=== PATIENT | male | born 1965 | race African-American/Black ===

== ENCOUNTER 2018-03-07 09:35 | Inpatient (IN) ==
[2018-03-07] MEDS ORDERED: FUROSEMIDE 100 MG/10 ML VIAL IV STA (10:40)
[2018-03-07 10:49] LABS: Eosinophils % 1.3 % (0.00-10.9); Lymphocytes # 1.1 10*3/uL (1.4-4.0); Lymphocytes % 35.4 % (21.2-54.2); Mean Corpuscular Hemoglobin 28 PG (27-34); Mean Corpuscular Volume 83.3 FL (87-102); Mean Platelet Volume 11.8 FL (9.6-12.0); Monocytes # 0.4 10*3/uL (0.11-0.8); Monocytes % 11.5 % (1.7-12.7); Neutrophils # 1.6 10*3/uL (1.4-7.4); Neutrophils % 50.8 % (38.7-73.9); Platelet Count 182 T/CUMM (130-400); Red Blood Count 5.64 MC/CUMM (3.8-5.5); Red Cell Distribution Width 19.2 % (9.3-17.3); White Blood Count 3.1 T/CUMM (4-12)
[2018-03-07 11:28] LABS: Albumin 3.2 G/DL (3.4-5.0); Bilirubin,Total 1.4 MG/DL (0.2-1.0); Osmolality,Calculated 286.7 MOS/KG (273-304); Potassium 3.9 MMOL/L (3.5-5.1); Total Protein 6.9 G/DL (6.4-8.3)
[2018-03-07] MEDS ORDERED: MAGNESIUM SULF RIDER 4 GM in PREMIX 1 EACH IV PRN ×2 (12:50→13:43)
[2018-03-07] MEDS ORDERED: cefTRIAXone 2,000 MG in SODIUM CHLORIDE 0.9% 100 ML IV SCH (13:30)
[2018-03-07] MEDS: HEPARIN 5,000 UNIT/1 ML VIAL SUBCUT SCH ×2 (13:30→21:18)
[2018-03-07 13:31] LABS: Risk Ratio 4.13; VLDL CHOLESTEROL 20.2 MG/DL
[2018-03-07] MEDS ORDERED: GLUCAGON 1 MG VIAL IM PRN (13:43)
[2018-03-07] MEDS ORDERED: MAGNESIUM SULF RIDER 2 GM in PREMIX 1 EACH IV PRN (13:43)
[2018-03-07] MEDS ORDERED: DEXTROSE 50% 25 GM/50 ML VIAL IV PRN (13:43)
[2018-03-07] MEDS: ALBUTEROL/IPRATROPIUM 3 ML NEB RESP TX SCH ×3 (13:51→23:08)
[2018-03-07] MEDS ORDERED: hydrALAZINE 10 MG TABLET PO SCH (15:00)
[2018-03-07 16:19] LABS: Hepatitis A Ab IgM Quant 0.12 Index; Hepatitis A Ab IgM Result Negative (Negative); Hepatitis B Core IgM Quant 0.08 Index; Hepatitis B Core IgM Result Negative (Negative); Hepatitis B Surface Ag Quant 0.41 Index; Hepatitis B Surface Ag Result Negative (Negative); Hepatitis C Virus Ab Result Negative (Negative)
[2018-03-07] MEDS ORDERED: CARVEDILOL 6.25 MG TABLET PO SCH ×2 (16:48→21:00)
[2018-03-07] MEDS: INSULIN REGULAR 100 UNIT/ML SUBCUT SCH ×2 (16:50→21:19)
[2018-03-07] MEDS: FUROSEMIDE 40 MG/4 ML VIAL IV SCH ×2 (16:50→21:18)
[2018-03-07] MEDS: CARVEDILOL 12.5 MG TABLET PO SCH ×2 (16:53→22:44)
[2018-03-07] MEDS: MAGNESIUM SULF RIDER 2 GM in PREMIX 1 EACH IV PRN (19:01)
[2018-03-07] MEDS ORDERED: CARVEDILOL 3.125 MG TABLET PO SCH (21:00)
[2018-03-08] MEDS: ALBUTEROL/IPRATROPIUM 3 ML NEB RESP TX SCH ×6 (02:34→23:03)
[2018-03-08] MEDS ORDERED: LEVALBUTEROL 1.25 MG/3 ML NEB RESP TX PRN (04:00)
[2018-03-08] MEDS ORDERED: POLYETHYLENE GLYCOL POWDER 17 GM PACK PO PRN (04:01)
[2018-03-08 04:26] LABS: Basophils % 0.8 % (0.0-0.8); Eosinophils # 0.1 10*3/uL (0.0-0.87); Eosinophils % 3.1 % (0.00-10.9); Hematocrit 45.8 VOL% (42.0-52.0); Immature Granulocytes % 0.6 %; Immature Granulocytes Absolute 0.02 #; Lymphocytes # 1.3 10*3/uL (1.4-4.0); Lymphocytes % 35.5 % (21.2-54.2); Mean Corpuscular HGB Conc 32.8 GM/DL (32-36); Mean Corpuscular Hemoglobin 28 PG (27-34); Mean Corpuscular Volume 84.7 FL (87-102); Mean Platelet Volume 12.1 FL (9.6-12.0); Monocytes # 0.4 10*3/uL (0.11-0.8); Monocytes % 10.4 % (1.7-12.7); Neutrophils # 1.8 10*3/uL (1.4-7.4); Neutrophils % 49.6 % (38.7-73.9); Platelet Count 174 T/CUMM (130-400); Red Blood Count 5.41 MC/CUMM (3.8-5.5); White Blood Count 3.6 T/CUMM (4-12)
[2018-03-08 04:47] LABS: Albumin 2.8 G/DL (3.4-5.0); Bilirubin,Total 1.4 MG/DL (0.2-1.0); Calcium 8.9 MG/DL (8.5-10.1); Osmolality,Calculated 282.7 MOS/KG (273-304); Total Protein 6.2 G/DL (6.4-8.3)
[2018-03-08] MEDS ORDERED: DOBUTamine 500 MG/250 ML PREMIX IV SCH (05:30)
[2018-03-08] MEDS: CARVEDILOL 12.5 MG TABLET PO SCH (06:04)
[2018-03-08] MEDS: HEPARIN 5,000 UNIT/1 ML VIAL SUBCUT SCH ×2 (06:09→13:49)
[2018-03-08] MEDS: INSULIN REGULAR 100 UNIT/ML SUBCUT SCH ×4 (07:56→20:10)
[2018-03-08] MEDS: FUROSEMIDE 40 MG/4 ML VIAL IV SCH ×2 (08:11→15:37)
[2018-03-08] MEDS: ASPIRIN CHEW 81 MG TABLET PO SCH (08:11)
[2018-03-08] MEDS: DIGOXIN 0.5 MG/2 ML AMP IV SCH ×2 (11:21→15:36)
[2018-03-08] MEDS: APIXABAN 5 MG TABLET PO SCH (20:11)
[2018-03-09] MEDS: ALBUTEROL/IPRATROPIUM 3 ML NEB RESP TX SCH ×6 (03:30→23:27)
[2018-03-09 04:15] LABS: Basophils % 0.4 % (0.0-0.8); Eosinophils # 0.1 10*3/uL (0.0-0.87); Eosinophils % 2.2 % (0.00-10.9); Hematocrit 46.6 VOL% (42.0-52.0); Hemoglobin 15.4 GM/DL (14.0-18.0); Immature Granulocytes % 0.2 %; Immature Granulocytes Absolute 0.01 #; Lymphocytes % 23.1 % (21.2-54.2); Mean Corpuscular Hemoglobin 28 PG (27-34); Mean Corpuscular Volume 83.4 FL (87-102); Mean Platelet Volume 12.3 FL (9.6-12.0); Monocytes # 0.5 10*3/uL (0.11-0.8); Monocytes % 10.8 % (1.7-12.7); Neutrophils # 2.8 10*3/uL (1.4-7.4); Neutrophils % 63.3 % (38.7-73.9); Platelet Count 164 T/CUMM (130-400); Red Blood Count 5.59 MC/CUMM (3.8-5.5); Red Cell Distribution Width 19.2 % (9.3-17.3); White Blood Count 4.5 T/CUMM (4-12)
[2018-03-09 04:58] LABS: Albumin 2.7 G/DL (3.4-5.0); Bilirubin,Total 1.3 MG/DL (0.2-1.0); Calcium 8.6 MG/DL (8.5-10.1); Osmolality,Calculated 287.1 MOS/KG (273-304); Potassium 3.8 MMOL/L (3.5-5.1)
[2018-03-09] MEDS ORDERED: MIDAZOLAM 2 MG/2 ML VIAL ONE (06:37)
[2018-03-09] MEDS ORDERED: PROPOFOL 200 MG/20 ML VIAL IV ONE ×2 (06:37→10:13)
[2018-03-09] MEDS ORDERED: ETOMIDATE 40 MG/20 ML VIAL IV ONE ×2 (06:37→10:14)
[2018-03-09] MEDS: INSULIN REGULAR 100 UNIT/ML SUBCUT SCH ×4 (07:43→20:13)
[2018-03-09] MEDS: MAGNESIUM SULF RIDER 2 GM in PREMIX 1 EACH IV PRN (07:55)
[2018-03-09] MEDS: POTASSIUM CHLORIDE RIDER 10 MEQ in PREMIX 1 EACH IV PRN ×2 (07:56→11:05)
[2018-03-09] MEDS ORDERED: AMIODARONE 150 MG/3 ML VIAL ONE ×2 (10:02)
[2018-03-09] MEDS ORDERED: AMIODARONE INJ 450 MG in DEXTROSE 5% 241 ML IV SCH (10:30)
[2018-03-09] MEDS: FUROSEMIDE 40 MG/4 ML VIAL IV SCH ×2 (11:03→17:34)
[2018-03-09] MEDS: APIXABAN 5 MG TABLET PO SCH ×2 (11:04→20:13)
[2018-03-09] MEDS: ASPIRIN CHEW 81 MG TABLET PO SCH (11:04)
[2018-03-09] MEDS: DIGOXIN 0.125 MG TABLET PO SCH (13:43)
[2018-03-09] MEDS: hydrALAZINE 10 MG TABLET PO SCH ×2 (17:34→20:13)
[2018-03-09] MEDS: AMIODARONE INJ 450 MG in DEXTROSE 5% 241 ML IV SCH (17:45)
[2018-03-09] MEDS ORDERED: AMIODARONE 450 MG/9 ML VIAL IV ONE (17:51)
[2018-03-10] MEDS: ALBUTEROL/IPRATROPIUM 3 ML NEB RESP TX SCH ×7 (03:38→23:09)
[2018-03-10 04:18] LABS: Basophils % 0.3 % (0.0-0.8); Eosinophils # 0.2 10*3/uL (0.0-0.87); Eosinophils % 4.1 % (0.00-10.9); Hematocrit 46.6 VOL% (42.0-52.0); Hemoglobin 15.4 GM/DL (14.0-18.0); Lymphocytes # 1.1 10*3/uL (1.4-4.0); Lymphocytes % 28.1 % (21.2-54.2); Mean Corpuscular Hemoglobin 28 PG (27-34); Mean Corpuscular Volume 83.7 FL (87-102); Mean Platelet Volume 10.7 FL (9.6-12.0); Monocytes # 0.5 10*3/uL (0.11-0.8); Monocytes % 12.9 % (1.7-12.7); Neutrophils # 2.1 10*3/uL (1.4-7.4); Neutrophils % 54.6 % (38.7-73.9); Platelet Count 135 T/CUMM (130-400); Red Blood Count 5.57 MC/CUMM (3.8-5.5); Red Cell Distribution Width 19.3 % (9.3-17.3); White Blood Count 3.9 T/CUMM (4-12)
[2018-03-10 04:51] LABS: Bilirubin,Total 1.4 MG/DL (0.2-1.0); Osmolality,Calculated 278.8 MOS/KG (273-304); Total Protein 6.4 G/DL (6.4-8.3)
[2018-03-10] MEDS ORDERED: HEPARIN/NACL 0.9% 2 UNITS/ML 500 ML IV ONE (06:55)
[2018-03-10] MEDS ORDERED: ceFAZolin 1,000 MG VIAL ONE (06:55)
[2018-03-10] MEDS ORDERED: ceFAZolin 1,000 MG VIAL IRRIG ONE (07:00)
[2018-03-10] MEDS ORDERED: LIDOCAINE 1% 20 ML VIAL ONE (07:02)
[2018-03-10] MEDS ORDERED: TISSUE ADHESIVE 1 EACH APPLICATOR TOP ONE (07:02)
[2018-03-10] MEDS ORDERED: PROPOFOL 200 MG/20 ML VIAL IV ONE (09:00)
[2018-03-10] MEDS ORDERED: SODIUM CHLORIDE 0.9% 100 ML IV ONE (09:01)
[2018-03-10] MEDS ORDERED: ETOMIDATE 40 MG/20 ML VIAL IV ONE (09:01)
[2018-03-10] MEDS ORDERED: KETAMINE 500 MG/10 ML VIAL ONE (09:01)
[2018-03-10] MEDS: INSULIN REGULAR 100 UNIT/ML SUBCUT SCH ×4 (09:43→21:44)
[2018-03-10] MEDS: hydrALAZINE 10 MG TABLET PO SCH ×3 (10:03→20:57)
[2018-03-10] MEDS: ASPIRIN CHEW 81 MG TABLET PO SCH (10:03)
[2018-03-10] MEDS: CARVEDILOL 3.125 MG TABLET PO SCH ×2 (10:03→20:57)
[2018-03-10] MEDS: FUROSEMIDE 40 MG/4 ML VIAL IV SCH ×2 (10:30→17:29)
[2018-03-10] MEDS: ISOSORBIDE MONONITRATE 30 MG TABLET PO SCH (10:47)
[2018-03-10] MEDS: AMIODARONE INJ 450 MG in DEXTROSE 5% 241 ML IV SCH (10:51)
[2018-03-10] MEDS: oxyCODONE/ACETAMINOPHEN 5-325 MG TABLET PO PRN ×2 (14:30→20:57)
[2018-03-10] MEDS: DIGOXIN 0.125 MG TABLET PO SCH (14:50)
[2018-03-11] MEDS: oxyCODONE/ACETAMINOPHEN 5-325 MG TABLET PO PRN ×3 (02:34→20:39)
[2018-03-11] MEDS: ALBUTEROL/IPRATROPIUM 3 ML NEB RESP TX SCH ×6 (03:50→23:19)
[2018-03-11] MEDS: AMIODARONE INJ 450 MG in DEXTROSE 5% 241 ML IV SCH (04:00)
[2018-03-11 04:03] LABS: Basophils % 0.2 % (0.0-0.8); Eosinophils # 0.1 10*3/uL (0.0-0.87); Eosinophils % 2.5 % (0.00-10.9); Hematocrit 42.1 VOL% (42.0-52.0); Hemoglobin 13.9 GM/DL (14.0-18.0); Immature Granulocytes % 0.4 %; Immature Granulocytes Absolute 0.02 #; Lymphocytes # 0.9 10*3/uL (1.4-4.0); Lymphocytes % 19.4 % (21.2-54.2); Mean Corpuscular Hemoglobin 28 PG (27-34); Mean Corpuscular Volume 85.6 FL (87-102); Mean Platelet Volume 11.2 FL (9.6-12.0); Monocytes # 0.6 10*3/uL (0.11-0.8); Monocytes % 11.8 % (1.7-12.7); Neutrophils # 3.2 10*3/uL (1.4-7.4); Neutrophils % 65.7 % (38.7-73.9); Platelet Count 121 T/CUMM (130-400); Red Blood Count 4.92 MC/CUMM (3.8-5.5); Red Cell Distribution Width 18.6 % (9.3-17.3); White Blood Count 4.8 T/CUMM (4-12)
[2018-03-11 04:21] LABS: Calcium 8.6 MG/DL (8.5-10.1); Osmolality,Calculated 278.8 MOS/KG (273-304); Potassium 3.9 MMOL/L (3.5-5.1)
[2018-03-11] MEDS: MAGNESIUM SULF RIDER 2 GM in PREMIX 1 EACH IV PRN (06:21)
[2018-03-11] MEDS: INSULIN REGULAR 100 UNIT/ML SUBCUT SCH ×4 (08:45→20:39)
[2018-03-11] MEDS: ISOSORBIDE MONONITRATE 30 MG TABLET PO SCH ×2 (08:45→10:03)
[2018-03-11] MEDS: CARVEDILOL 3.125 MG TABLET PO SCH ×2 (08:45→20:39)
[2018-03-11] MEDS: hydrALAZINE 10 MG TABLET PO SCH ×3 (08:45→20:39)
[2018-03-11] MEDS: FUROSEMIDE 40 MG/4 ML VIAL IV SCH ×2 (08:45→17:13)
[2018-03-11] MEDS: ASPIRIN CHEW 81 MG TABLET PO SCH (08:46)
[2018-03-11] MEDS: AMIODARONE 200 MG TABLET PO SCH (10:04)
[2018-03-11] MEDS: cephALEXin 500 MG CAPSULE PO SCH ×2 (12:14→21:38)
[2018-03-11] MEDS: DIGOXIN 0.125 MG TABLET PO SCH (15:04)
[2018-03-11] MEDS ORDERED: MORPHINE 4 MG/1 ML VIAL IV PRN (19:35)
[2018-03-12] MEDS: ALBUTEROL/IPRATROPIUM 3 ML NEB RESP TX SCH ×3 (03:11→10:44)
[2018-03-12 03:49] LABS: Calcium 8.8 MG/DL (8.5-10.1); Osmolality,Calculated 277.7 MOS/KG (273-304)
[2018-03-12] MEDS: MAGNESIUM SULF RIDER 2 GM in PREMIX 1 EACH IV PRN (05:57)
[2018-03-12] MEDS ORDERED: FUROSEMIDE 80 MG TABLET PO SCH (08:00)
[2018-03-12] MEDS: CARVEDILOL 3.125 MG TABLET PO SCH (08:43)
[2018-03-12] MEDS: cephALEXin 500 MG CAPSULE PO SCH (08:43)
[2018-03-12] MEDS: ASPIRIN CHEW 81 MG TABLET PO SCH (08:44)
[2018-03-12] MEDS: hydrALAZINE 10 MG TABLET PO SCH (08:44)
[2018-03-12] MEDS: ISOSORBIDE MONONITRATE 30 MG TABLET PO SCH (08:44)
[2018-03-12] MEDS: AMIODARONE 200 MG TABLET PO SCH (08:44)
[2018-03-12] MEDS: INSULIN REGULAR 100 UNIT/ML SUBCUT SCH (11:09)
[2018-03-12 11:52] VITALS: BP 111/73
== END 2018-03-12 12:20 | disposition home or self-care (01) | DRG 161 ==
LOC: N.ED 09:35 → N.EDINP 12:37 → SUATTDRO 12:37 → N.TELEN 13:08 → N.CC 03-08 05:37 → N.TELES 03-11 15:47
PROVIDERS: ADMIT Hospitalist; ATTEND Hospitalist
PROC: CLDCICD (2018-03-10 07:15)

== ENCOUNTER 2020-11-21 12:59 | Inpatient (IN) ==
[2020-11-21] MEDS ORDERED: SODIUM CHLORIDE 0.9% 1,000 ML IV STA (14:12)
[2020-11-21 14:39] LABS: Bilirubin,Total 0.6 MG/DL (0.2-1.0); Osmolality,Calculated 290.9 MOS/KG (273-304); Potassium 5.2 MMOL/L (3.5-5.1); Total Protein 7.9 G/DL (6.4-8.2)
[2020-11-21 14:42] LABS: Bilirubin,Urine Negative (Negative); Blood, Urine Small mg/dL (Negative); Glucose,Urine (UA) >=500 mg/dL (Negative); Ketones,Urine Negative (Negative); Nitrite,Urine Negative (Negative); Protein,Urine Negative; RBC,Urine 6 /HPF (0-4); Squamous Epithelial Cell,Urine Occasional /HPF (0-10); Urine Appearance CLOUDY (Clear); Urine Color Yellow (Yellow); Urine Specific Gravity 1.018 (1.001-1.035); Urine Urobilinogen < 2.0 EU/DL (0.2-1.0)
[2020-11-21] MEDS ORDERED: cefTRIAXone 1,000 MG in SODIUM CHLORIDE 0.9% 100 ML IV STA (14:48)
[2020-11-21] MEDS ORDERED: INSULIN REGULAR 100 UNIT/ML IV ONE (15:00)
[2020-11-21] MEDS ORDERED: LACTATED RINGERS 2,000 ML IV ONE (15:11)
[2020-11-21 15:15] LABS: Basophils % 0.3 % (0.0-0.8); Eosinophils % 0.3 % (0.00-10.9); Hematocrit 34.6 VOL% (42.0-52.0); Hemoglobin 12.3 GM/DL (14.0-18.0); Immature Granulocytes % 0.4 %; Immature Granulocytes Absolute 0.03 #; Lymphocytes # 0.7 10*3/uL (1.4-4.0); Lymphocytes % 9.9 % (21.2-54.2); Mean Corpuscular HGB Conc 35.5 GM/DL (32-36); Mean Corpuscular Volume 81.4 FL (87-102); Mean Platelet Volume 12.4 FL (9.6-12.0); Monocytes % 10.7 % (1.7-12.7); Neutrophils % 78.4 % (38.7-73.9); Platelet Count 181 T/CUMM (130-400); Red Blood Count 4.25 MC/CUMM (3.8-5.5); Red Cell Distribution Width 13.5 % (9.3-17.3); White Blood Count 6.9 T/CUMM (4-12)
[2020-11-21] MEDS ORDERED: ALBUTEROL 2.5 MG/3 ML NEB RESP TX PRN (16:00)
[2020-11-21] MEDS ORDERED: ONDANSETRON 4 MG/2 ML VIAL IV PRN (16:01)
[2020-11-21] MEDS ORDERED: INSULIN GLARGINE 100 UNIT/ML SUBCUT SCH (16:05)
[2020-11-21 16:25] LABS: Basophils % 0.3 % (0.0-0.8); Eosinophils % 0.3 % (0.00-10.9); Hematocrit 33.2 VOL% (42.0-52.0); Hemoglobin 11.6 GM/DL (14.0-18.0); Immature Granulocytes % 0.3 %; Immature Granulocytes Absolute 0.02 #; Lymphocytes # 0.9 10*3/uL (1.4-4.0); Lymphocytes % 11.2 % (21.2-54.2); Mean Corpuscular HGB Conc 34.9 GM/DL (32-36); Mean Corpuscular Volume 82.8 FL (87-102); Mean Platelet Volume 11.3 FL (9.6-12.0); Monocytes % 10.4 % (1.7-12.7); Neutrophils % 77.5 % (38.7-73.9); Platelet Count 207 T/CUMM (130-400); Red Blood Count 4.01 MC/CUMM (3.8-5.5); Red Cell Distribution Width 13.4 % (9.3-17.3)
[2020-11-21] MEDS ORDERED: DOPamine 800 MG/250 ML PREMIX IV SCH (16:30)
[2020-11-21] MEDS: INSULIN LISPRO 100 UNIT/ML SUBCUT SCH ×2 (16:33→19:54)
[2020-11-21] MEDS: SODIUM CHLORIDE 0.9% 1,000 ML IV SCH (16:43)
[2020-11-21] MEDS ORDERED: LEVOFLOXACIN INJ 750 MG/150 ML PREMIX IV ONE (16:45)
[2020-11-21 18:57] LABS: Calcium 8.8 MG/DL (8.5-10.1); Osmolality,Calculated 282.6 MOS/KG (273-304); Potassium 3.8 MMOL/L (3.5-5.1)
[2020-11-22] MEDS: INSULIN LISPRO 100 UNIT/ML SUBCUT SCH ×6 (00:35→20:30)
[2020-11-22] MEDS: SODIUM CHLORIDE 0.9% 1,000 ML IV SCH ×5 (00:57→22:18)
[2020-11-22 04:12] LABS: Basophils % 0.2 % (0.0-0.8); Eosinophils # 0.1 10*3/uL (0.0-0.87); Hematocrit 31.8 VOL% (42.0-52.0); Hemoglobin 11.2 GM/DL (14.0-18.0); Immature Granulocytes % 0.5 %; Immature Granulocytes Absolute 0.04 #; Lymphocytes % 12.6 % (21.2-54.2); Mean Corpuscular HGB Conc 35.2 GM/DL (32-36); Mean Corpuscular Volume 81.7 FL (87-102); Mean Platelet Volume 12.5 FL (9.6-12.0); Monocytes % 11.1 % (1.7-12.7); Neutrophils % 74.6 % (38.7-73.9); Platelet Count 210 T/CUMM (130-400); Red Blood Count 3.89 MC/CUMM (3.8-5.5); Red Cell Distribution Width 13.4 % (9.3-17.3)
[2020-11-22 04:36] LABS: Alanine Aminotransferase < 9 U/L (16-61); Albumin 2.6 G/DL (3.4-5.0); Alkaline Phosphatase 109 U/L (45-117); Aspartate Amino Transferase 6 U/L (0-37); Bilirubin,Total < 0.39 MG/DL (0.2-1.0); Blood Urea Nitrogen 24 MG/DL (7-18); Calcium 8.9 MG/DL (8.5-10.1); Carbon Dioxide 31 MMOL/L (21-32); Estimated Glom Filtration Rate 43 ML/MIN; Glucose 124 MG/DL (74-106); Osmolality,Calculated 268.5 MOS/KG (273-304); Potassium 3.8 MMOL/L (3.5-5.1); Sodium 132 MMOL/L (136-145); Thyroid Stimulating Hormone 0.271 uIU/ml (0.358-3.74); Total Protein 6.8 G/DL (6.4-8.2)
[2020-11-22] MEDS ORDERED: GLUCAGON 1 MG VIAL IM PRN (07:02)
[2020-11-22] MEDS ORDERED: DEXTROSE 50% 25 GM/50 ML VIAL IV PRN (07:02)
[2020-11-22] MEDS ORDERED: NITROGLYCERIN SL 0.4 MG TABLET SL PRN (07:54)
[2020-11-22] MEDS: AMIODARONE 200 MG TABLET PO SCH (08:38)
[2020-11-22] MEDS: PANTOPRAZOLE 40 MG TABLET PO SCH (08:38)
[2020-11-22] MEDS: ASPIRIN CHEW 81 MG TABLET PO SCH (08:38)
[2020-11-22] MEDS: ROSUVASTATIN 10 MG TABLET PO SCH (08:38)
[2020-11-22] MEDS: APIXABAN 5 MG TABLET PO SCH ×2 (08:38→20:30)
[2020-11-22] MEDS ORDERED: SODIUM CHLORIDE 0.9% 500 ML IV ONE (09:33)
[2020-11-22] MEDS ORDERED: DOPamine 0 MG/0 ML PREMIX IV ONE (12:16)
[2020-11-22] MEDS: DIGOXIN 0.125 MG TABLET PO SCH (13:35)
[2020-11-22] MEDS: INSULIN GLARGINE 100 UNIT/ML SUBCUT SCH (20:30)
[2020-11-23] MEDS: INSULIN LISPRO 100 UNIT/ML SUBCUT SCH ×7 (00:30→23:46)
[2020-11-23 03:47] LABS: Basophils % 0.2 % (0.0-0.8); Eosinophils % 0.6 % (0.00-10.9); Hematocrit 27.7 VOL% (42.0-52.0); Hemoglobin 9.6 GM/DL (14.0-18.0); Immature Granulocytes % 0.2 %; Immature Granulocytes Absolute 0.01 #; Lymphocytes # 1.2 10*3/uL (1.4-4.0); Lymphocytes % 25.1 % (21.2-54.2); Mean Corpuscular HGB Conc 34.7 GM/DL (32-36); Mean Corpuscular Volume 85.2 FL (87-102); Mean Platelet Volume 11.9 FL (9.6-12.0); Monocytes % 13.1 % (1.7-12.7); Neutrophils % 60.8 % (38.7-73.9); Platelet Count 148 T/CUMM (130-400); Red Blood Count 3.25 MC/CUMM (3.8-5.5); Red Cell Distribution Width 14.3 % (9.3-17.3); White Blood Count 4.7 T/CUMM (4-12)
[2020-11-23 04:08] LABS: Osmolality,Calculated 278.7 MOS/KG (273-304); Potassium 3.6 MMOL/L (3.5-5.1)
[2020-11-23] MEDS: SODIUM CHLORIDE 0.9% 1,000 ML IV SCH (06:15)
[2020-11-23] MEDS ORDERED: MAGNESIUM SULF RIDER 4 GM/100 ML PREMIX IV ONE (09:00)
[2020-11-23] MEDS: AMIODARONE 200 MG TABLET PO SCH (09:54)
[2020-11-23] MEDS: APIXABAN 5 MG TABLET PO SCH ×2 (09:54→21:15)
[2020-11-23] MEDS: PANTOPRAZOLE 40 MG TABLET PO SCH (09:54)
[2020-11-23] MEDS: ASPIRIN CHEW 81 MG TABLET PO SCH (09:54)
[2020-11-23] MEDS: ROSUVASTATIN 10 MG TABLET PO SCH (09:54)
[2020-11-23] MEDS: LEVOFLOXACIN 500 MG TABLET PO SCH (09:54)
[2020-11-23] MEDS: DIGOXIN 0.125 MG TABLET PO SCH (12:35)
[2020-11-23] MEDS: INSULIN GLARGINE 100 UNIT/ML SUBCUT SCH (21:19)
[2020-11-24] MEDS: INSULIN LISPRO 100 UNIT/ML SUBCUT SCH ×7 (04:13→21:07)
[2020-11-24 05:57] LABS: Basophils % 0.2 % (0.0-0.8); Eosinophils # 0.1 10*3/uL (0.0-0.87); Eosinophils % 2.6 % (0.00-10.9); Hematocrit 27.5 VOL% (42.0-52.0); Hemoglobin 9.3 GM/DL (14.0-18.0); Immature Granulocytes % 0.5 %; Immature Granulocytes Absolute 0.02 #; Lymphocytes # 1.3 10*3/uL (1.4-4.0); Lymphocytes % 29.7 % (21.2-54.2); Mean Corpuscular HGB Conc 33.8 GM/DL (32-36); Mean Corpuscular Volume 86.2 FL (87-102); Mean Platelet Volume 12.1 FL (9.6-12.0); Monocytes % 11.6 % (1.7-12.7); Neutrophils % 55.4 % (38.7-73.9); Platelet Count 151 T/CUMM (130-400); Red Blood Count 3.19 MC/CUMM (3.8-5.5); Red Cell Distribution Width 14.2 % (9.3-17.3); White Blood Count 4.2 T/CUMM (4-12)
[2020-11-24 06:23] LABS: Calcium 7.9 MG/DL (8.5-10.1); Osmolality,Calculated 280.7 MOS/KG (273-304); Potassium 4.2 MMOL/L (3.5-5.1)
[2020-11-24 06:33] LABS: Hypochromasia 1+; Microcytosis 1+; Platelet Estimate Adequate
[2020-11-24] MEDS: ROSUVASTATIN 10 MG TABLET PO SCH (09:31)
[2020-11-24] MEDS: LEVOFLOXACIN 500 MG TABLET PO SCH (09:31)
[2020-11-24] MEDS: ASPIRIN CHEW 81 MG TABLET PO SCH (09:32)
[2020-11-24] MEDS: AMIODARONE 200 MG TABLET PO SCH (09:32)
[2020-11-24] MEDS: PANTOPRAZOLE 40 MG TABLET PO SCH (09:32)
[2020-11-24] MEDS: APIXABAN 5 MG TABLET PO SCH ×2 (09:32→21:06)
[2020-11-24] MEDS: DIGOXIN 0.125 MG TABLET PO SCH (14:06)
[2020-11-24] MEDS: metFORMIN 500 MG TABLET PO SCH (16:29)
[2020-11-24] MEDS: hydrALAZINE 10 MG TABLET PO SCH ×2 (16:29→21:05)
[2020-11-24] MEDS: INSULIN GLARGINE 100 UNIT/ML SUBCUT SCH (21:07)
[2020-11-24] MEDS: SACUBITRIL/VALSARTAN 49-51 MG TABLET PO SCH (21:08)
[2020-11-25] MEDS: INSULIN LISPRO 100 UNIT/ML SUBCUT SCH ×6 (00:24→20:59)
[2020-11-25 05:29] LABS: Basophils % 0.3 % (0.0-0.8); Eosinophils # 0.1 10*3/uL (0.0-0.87); Eosinophils % 2.5 % (0.00-10.9); Hematocrit 30.1 VOL% (42.0-52.0); Immature Granulocytes % 0.3 %; Immature Granulocytes Absolute 0.01 #; Lymphocytes # 1.4 10*3/uL (1.4-4.0); Lymphocytes % 34.5 % (21.2-54.2); Mean Corpuscular HGB Conc 33.2 GM/DL (32-36); Mean Platelet Volume 12.1 FL (9.6-12.0); Monocytes % 8.4 % (1.7-12.7); Platelet Count 175 T/CUMM (130-400); Red Blood Count 3.42 MC/CUMM (3.8-5.5); Red Cell Distribution Width 14.3 % (9.3-17.3); White Blood Count 3.9 T/CUMM (4-12)
[2020-11-25 05:50] LABS: Calcium 8.1 MG/DL (8.5-10.1); Osmolality,Calculated 284.4 MOS/KG (273-304); Potassium 4.1 MMOL/L (3.5-5.1)
[2020-11-25 06:09] LABS: Eosinophils 2 % (0-10); Hypochromasia 1+; Lymphocytes 41 % (20-55); Microcytosis 1+; Segmented Neutrophils 53 % (50-85); Total Cells Counted 100
[2020-11-25 06:10] LABS: Platelet Estimate Adequate
[2020-11-25] MEDS ORDERED: MAGNESIUM CITRATE 300 ML BOTTLE PO PRN (06:22)
[2020-11-25] MEDS: ASPIRIN CHEW 81 MG TABLET PO SCH (08:52)
[2020-11-25] MEDS: LEVOFLOXACIN 500 MG TABLET PO SCH (08:52)
[2020-11-25] MEDS: hydrALAZINE 10 MG TABLET PO SCH ×3 (08:52→20:58)
[2020-11-25] MEDS: ROSUVASTATIN 10 MG TABLET PO SCH (08:52)
[2020-11-25] MEDS: AMIODARONE 200 MG TABLET PO SCH (08:53)
[2020-11-25] MEDS: metFORMIN 500 MG TABLET PO SCH ×2 (08:53→17:16)
[2020-11-25] MEDS: SACUBITRIL/VALSARTAN 49-51 MG TABLET PO SCH ×2 (08:53→20:57)
[2020-11-25] MEDS: APIXABAN 5 MG TABLET PO SCH ×2 (08:53→20:58)
[2020-11-25] MEDS: PANTOPRAZOLE 40 MG TABLET PO SCH (12:22)
[2020-11-25] MEDS: DIGOXIN 0.125 MG TABLET PO SCH (12:22)
[2020-11-25] MEDS: INSULIN GLARGINE 100 UNIT/ML SUBCUT SCH (21:00)
[2020-11-26] MEDS: INSULIN LISPRO 100 UNIT/ML SUBCUT SCH ×4 (01:01→12:17)
[2020-11-26 05:28] LABS: Basophils % 0.4 % (0.0-0.8); Eosinophils # 0.2 10*3/uL (0.0-0.87); Eosinophils % 3.6 % (0.00-10.9); Hematocrit 30.3 VOL% (42.0-52.0); Hemoglobin 10.1 GM/DL (14.0-18.0); Immature Granulocytes % 0.2 %; Immature Granulocytes Absolute 0.01 #; Lymphocytes # 1.1 10*3/uL (1.4-4.0); Lymphocytes % 24.9 % (21.2-54.2); Mean Corpuscular HGB Conc 33.3 GM/DL (32-36); Mean Corpuscular Volume 87.8 FL (87-102); Mean Platelet Volume 11.5 FL (9.6-12.0); Monocytes % 7.9 % (1.7-12.7); Platelet Count 170 T/CUMM (130-400); Red Blood Count 3.45 MC/CUMM (3.8-5.5); Red Cell Distribution Width 14.1 % (9.3-17.3); White Blood Count 4.5 T/CUMM (4-12)
[2020-11-26 05:48] LABS: Osmolality,Calculated 279.7 MOS/KG (273-304); Potassium 3.9 MMOL/L (3.5-5.1)
[2020-11-26 05:55] LABS: Hypochromasia 1+; Microcytosis 1+; Platelet Estimate Adequate
[2020-11-26] MEDS: hydrALAZINE 10 MG TABLET PO SCH (08:28)
[2020-11-26] MEDS: ROSUVASTATIN 10 MG TABLET PO SCH (08:28)
[2020-11-26] MEDS: SACUBITRIL/VALSARTAN 49-51 MG TABLET PO SCH (08:28)
[2020-11-26] MEDS: ASPIRIN CHEW 81 MG TABLET PO SCH (08:28)
[2020-11-26] MEDS: PANTOPRAZOLE 40 MG TABLET PO SCH (08:28)
[2020-11-26] MEDS: AMIODARONE 200 MG TABLET PO SCH (08:29)
[2020-11-26] MEDS: metFORMIN 500 MG TABLET PO SCH (08:29)
[2020-11-26] MEDS: APIXABAN 5 MG TABLET PO SCH (08:29)
[2020-11-26] MEDS: LEVOFLOXACIN 500 MG TABLET PO SCH (08:29)
[2020-11-26] MEDS: DIGOXIN 0.125 MG TABLET PO SCH (12:17)
[2020-11-26 12:18] VITALS: BP 137/68
== END 2020-11-26 13:47 | disposition home health service (06) | DRG 638 ==
LOC: EDUNIT# → EDBD → N.ED 12:59 → N.EDINP 15:09 → SUATTDRO 15:09 → N.ICU 15:56 → N.5E 11-23 16:59
PROVIDERS: ADMIT Internal Medicine; ATTEND Internal Medicine